=== PATIENT | female | born 1945 | race Asian ===

== ENCOUNTER 2017-12-15 07:56 | Day surgery (SDC) | payer MEDICARE, MEDICAID ==
[~2017-12-15] VITALS: Ht 149.9 cm; Wt 44.2 kg
[~2017-12-15 07:56] MED LIST: HEPARIN 1,000 UNITS/ML, 10ML ONE; PROTAMINE SULFATE 10 MG/ML, 5ML ONE
[2017-12-15] MEDS ORDERED: SODIUM CHLORIDE 0.9% 1,000 ML IV SCH (09:27)
[2017-12-15] MEDS ORDERED: LIDOCAINE-MPF 1%, 2ML INFIL ONE (09:30)
[2017-12-15 09:34] VITALS: BP 163/83
[2017-12-15] MEDS ORDERED: METO50TA82 PO (09:50)
[2017-12-15] MEDS ORDERED: AMLO5TAB2 PO (09:50)
[2017-12-15] MEDS ORDERED: ISOS10TA2 PO (09:50)
[2017-12-15] MEDS ORDERED: HYDR-3343 PO (09:50)
[2017-12-15] MEDS ORDERED: SEVE800T8 PO (09:50)
[2017-12-15] MEDS ORDERED: PRAV20TA2 PO (09:50)
[2017-12-15] MEDS ORDERED: MIDAZOLAM 1 MG/ML, 2ML ONE (10:19)
[2017-12-15] MEDS ORDERED: FENTANYL PF 250 MCG/5ML ONE (10:19)
[2017-12-15] MEDS ORDERED: PROPOFOL 10 MG/ML, 20ML ONE (10:21)
[2017-12-15] MEDS ORDERED: ONDANSETRON 2MG/ML, 2ML ONE (10:21)
[2017-12-15] MEDS ORDERED: CEFAZOLIN 1,000 MG ONE ×2 (10:22)
[2017-12-15] MEDS ORDERED: SODIUM CHLORIDE 0.9% PF 10ML ONE (10:22)
[2017-12-15 10:59] LABS: INTERNATIONAL NORMALIZED RATIO 0.93 (0.93-1.1); PROTHROMBIN TIME 9.7 Seconds (9.6-11.5)
[2017-12-15] MEDS ORDERED: DEXAMETHASONE 4 MG/ML, 1ML ONE ×2 (11:21)
[2017-12-15] MEDS ORDERED: LABETALOL 5MG/ML, 20ML IV PRN (11:30)
[2017-12-15] MEDS ORDERED: PROMETHAZINE 12.5 MG SUPP PR PRN (11:30)
[2017-12-15] MEDS ORDERED: FENTANYL PF 100 MCG/2ML IV PRN (11:30)
[2017-12-15] MEDS ORDERED: OXYcodone 5 MG/5 ML ORAL.SOL UDC PO PRN (11:30)
[2017-12-15] MEDS ORDERED: PROMETHAZINE 25 MG/ML, 1ML IV PRN (11:30)
[2017-12-15] MEDS ORDERED: ONDANSETRON 2MG/ML, 2ML IVPush PRN (11:30)
[2017-12-15] MEDS ORDERED: HYDROmorphone 1 MG/ML, 1ML IV PRN (11:30)
[2017-12-15] MEDS ORDERED: morphine SULFATE 10 MG/ML, 1ML IV PRN (11:30)
[2017-12-15] MEDS ORDERED: hydrALAzine 20 MG/ML, 1ML IV PRN (11:30)
[2017-12-15] MEDS ORDERED: HEPARIN 1,000 UNITS/ML, 10ML PERMACATH ONE (12:30)
[2017-12-15] MEDS ORDERED: FENTANYL PF 100 MCG/2ML ONE (12:33)
[2017-12-15] MEDS ORDERED: OXYcodone 5 MG/5 ML ORAL.SOL UDC ONE (12:33)
[2017-12-15] MEDS ORDERED: hydrALAzine 20 MG/ML, 1ML ONE (12:33)
[2017-12-15] MEDS ORDERED: HEPARIN 5,000 UNITS/ML, 1ML ONE (13:03)
== END 2017-12-15 14:55 ==
LOC: OUT 07:56
PROVIDERS: ATTEND Surgery Vascular Surgery
DX: E11.22 Type 2 diabetes mellitus with diabetic chronic kidney disease (principal); I12.0 Hypertensive chronic kidney disease with stage 5 chronic kidney disease or end stage renal disease; N18.6 End stage renal disease
CPT/HCPCS: 36415; 36821; 80047; 85610; 85730; 93005; J0360; J0690; J1100; J1644; J2250; J2405; J2704; J3010; J2720